=== PATIENT | female | born 1965 | race Asian ===

== ENCOUNTER 2017-10-27 13:45 | Emergency (ER) | payer OTHER ==
[~2017-10-27] VITALS: Ht 157.5 cm; Wt 51.7 kg
[~2017-10-27 13:45] MED LIST: CEPH500; CETI10 PO; CLIN300 PO; CYCL10 PO; HYDACE5; HYDACE5 PO; IBUP600 PO; IBUP800 PO; Lotrimin Ultra12 GM TP; MULVITMINF; NAPR500 PO; OXYACE5T PO; PENVK500 PO; STOMUL; TRAM50 PO; TRIA80TC TOP
[2017-10-27] MEDS ORDERED: ALBU90OI INH (14:42)
== END 2017-10-27 14:58 | disposition home or self-care (01) ==
LOC: ER 13:45
DX: Z76.0 Encounter for issue of repeat prescription (principal); Z91.040 Latex allergy status; Z88.0 Allergy status to penicillin; Z88.8 Allergy status to other drugs, medicaments and biological substances; Z88.5 Allergy status to narcotic agent; Z79.899 Other long term (current) drug therapy; F17.200 Nicotine dependence, unspecified, uncomplicated
CPT/HCPCS: 99282

== ENCOUNTER 2020-10-10 16:02 | Emergency (ER) | payer OTHER ==
[~2020-10-10] VITALS: Ht 152.4 cm; Wt 54.4 kg
[~2020-10-10 16:02] MED LIST changes: +ALBU90OI INH
[2020-10-10] MEDS ORDERED: IBUP200 PO (18:19)
== END 2020-10-10 18:38 | disposition home or self-care (01) ==
LOC: ER 16:02
DX: K08.89 Other specified disorders of teeth and supporting structures (principal); J45.909 Unspecified asthma, uncomplicated; F17.200 Nicotine dependence, unspecified, uncomplicated; Z91.040 Latex allergy status; Z88.0 Allergy status to penicillin
CPT/HCPCS: 99282; A9270

== ENCOUNTER 2022-10-04 12:41 | Emergency (ER) | payer OTHER ==
[~2022-10-04] VITALS: Ht 152.4 cm; Wt 47.2 kg
[~2022-10-04 12:41] MED LIST changes: +CEPH500 PO; +EUTHYROX125 MCG PO; +IBUP200 PO
[2022-10-04] MEDS ORDERED: ALBU90OI (12:50)
[2022-10-04] MEDS ORDERED: ALBU90OI INH (12:52)
== END 2022-10-04 13:02 | disposition home or self-care (01) ==
LOC: ER 12:41
DX: Z76.0 Encounter for issue of repeat prescription (principal); J45.909 Unspecified asthma, uncomplicated; I10 Essential (primary) hypertension; F17.200 Nicotine dependence, unspecified, uncomplicated; Z91.040 Latex allergy status; Z88.0 Allergy status to penicillin; Z88.8 Allergy status to other drugs, medicaments and biological substances; Z88.6 Allergy status to analgesic agent; Z79.899 Other long term (current) drug therapy
CPT/HCPCS: 99281

== ENCOUNTER → 2022-10-12 | Emergency (ER) | payer OTHER ==
[~2022-10-12] VITALS: Ht 152.4 cm; Wt 47.6 kg
[~2022-10-12] MED LIST changes: +ALBU90OI
== END ==
LOC: ER 15:39
DX: Z76.0 Encounter for issue of repeat prescription (principal); J45.909 Unspecified asthma, uncomplicated; F17.200 Nicotine dependence, unspecified, uncomplicated; Z88.0 Allergy status to penicillin; Z88.6 Allergy status to analgesic agent; Z88.5 Allergy status to narcotic agent; Z91.040 Latex allergy status; Z79.890 Hormone replacement therapy
CPT/HCPCS: 81000

== ENCOUNTER 2022-10-27 18:14 | Emergency (ER) | payer OTHER ==
[~2022-10-27] VITALS: Ht 157.5 cm; Wt 47.2 kg
[2022-10-27 18:36] VITALS: BP 185/80
[2022-10-27] MEDS ORDERED: TRIDERM28.4 GM TOP (20:50)
== END 2022-10-27 21:00 | disposition home or self-care (01) ==
LOC: ER 18:14
DX: L29.2 Pruritus vulvae (principal); E03.9 Hypothyroidism, unspecified; F17.210 Nicotine dependence, cigarettes, uncomplicated; Z91.040 Latex allergy status; Z88.0 Allergy status to penicillin; Z88.5 Allergy status to narcotic agent; Z79.899 Other long term (current) drug therapy
CPT/HCPCS: 99282

== ENCOUNTER 2024-01-27 12:07 | Emergency (ER) | payer OTHER ==
[~2024-01-27] VITALS: Ht 154.9 cm; Wt 47.2 kg
[~2024-01-27 12:07] MED LIST changes: +TRIDERM28.4 GM TOP
[2024-01-27 12:34] VITALS: BP 128/89
[2024-01-27] MEDS ORDERED: ALBU90OI INH (12:38)
== END 2024-01-27 12:37 | disposition home or self-care (01) ==
LOC: ER 12:07
DX: Z76.0 Encounter for issue of repeat prescription (principal); F17.290 Nicotine dependence, other tobacco product, uncomplicated; J44.9 Chronic obstructive pulmonary disease, unspecified; Z88.0 Allergy status to penicillin; Z91.040 Latex allergy status; Z88.6 Allergy status to analgesic agent; Z88.5 Allergy status to narcotic agent; Z79.890 Hormone replacement therapy; Z79.899 Other long term (current) drug therapy
CPT/HCPCS: 99281

== ENCOUNTER 2024-03-01 16:08 | Emergency (ER) | payer OTHER ==
[~2024-03-01] VITALS: Ht 154.9 cm; Wt 52.2 kg
[2024-03-01 16:21] VITALS: BP 156/111
[2024-03-01] MEDS ORDERED: ALBU90OI INH (16:26)
== END 2024-03-01 16:26 | disposition home or self-care (01) ==
LOC: ER 16:08
DX: Z76.0 Encounter for issue of repeat prescription (principal); J45.909 Unspecified asthma, uncomplicated; Z91.040 Latex allergy status; Z88.0 Allergy status to penicillin; Z88.8 Allergy status to other drugs, medicaments and biological substances; Z88.5 Allergy status to narcotic agent; Z79.899 Other long term (current) drug therapy; F17.290 Nicotine dependence, other tobacco product, uncomplicated
CPT/HCPCS: 99281

== ENCOUNTER 2024-03-14 15:41 | Emergency (ER) | payer OTHER ==
[~2024-03-14] VITALS: Ht 154.9 cm; Wt 47.2 kg
[2024-03-14 15:45] VITALS: BP 178/124
[2024-03-14 16:12] LABS: BASOPHILS ABSOLUTE AUTO 0.06 K/mm3 (0.00-0.23); BASOPHILS PERCENT AUTO 1 % (0-2); EOSINOPHILS PERCENT AUTO 2 % (0-6); Hematocrit 28.4 % (33.0-51.0); Hemoglobin 9.4 g/dL (11.5-16.0); IMMATURE GRAN ABSOLUTE AUTO 0.01 K/mm3 (0.00-0.10); IMMATURE GRAN PERCENT AUTO 0 % (0-1); LYMPHOCYTES ABSOLUTE AUTO 1.76 K/mm3 (0.84-5.20); LYMPHOCYTES PERCENT AUTO 32 % (21-46); MONOCYTES PERCENT AUTO 4 % (4-13); Mean Corpuscular HGB 34.4 pg (26.0-34.0); Mean Corpuscular HGB Conc 33.1 g/dL (31.5-36.5); Mean Corpuscular Volume 104 fL (80-100); Mean Platelet Volume 9.2 fL (9.1-12.4); NEUTROPHILS ABSOLUTE AUTO 3.42 K/mm3 (1.96-9.15); NEUTROPHILS PERCENT AUTO 62 % (41-73); Platelet Count 230 K/mm3 (150-400); RDW Coefficient Variation 14.6 % (11.7-14.2); RDW Standard Deviation 55.3 fL (35.1-46.3); Red Blood Cell Count 2.73 M/mm3 (3.80-5.20); White Blood Cell Count 5.55 K/mm3 (4.00-11.30)
[2024-03-14 16:57] LABS: Albumin, Blood 3.8 g/dL (3.4-5.0); Albumin/Globulin Ratio 1.2 (0.8-1.8); Bilirubin, Total 0.4 mg/dL (0.1-1.0); Bun/Creatinine Ratio 19.8 (12.0-20.0); Calcium, Blood 9.8 mg/dL (8.5-10.1); Creatinine, Blood 1.21 mg/dL (0.40-1.00); Globulin, Blood 3.3 g/dL (2.2-4.0); Potassium, Blood 2.7 mmol/L (3.5-5.5); Total Protein, Blood 7.1 g/dL (6.4-8.2)
== END 2024-03-14 18:55 | disposition left against medical advice (07) ==
LOC: ER 15:41
PROVIDERS: Physician Assistant
DX: R44.3 Hallucinations, unspecified (principal); Z53.21 Procedure and treatment not carried out due to patient leaving prior to being seen by health care provider
CPT/HCPCS: 80053; 84443; 85025; 99281

== ENCOUNTER → 2024-05-18 | Outpatient (CLI) | payer OTHER ==
[2024-05-18 14:20] LABS: Stool Occult Bld Immuno 1 Negative (NEGATIVE)
== END | disposition home or self-care (01) ==
LOC: LAB 13:22 → LAB SHORT 13:22
PROVIDERS: Nurse Practitioner Family
DX: D64.9 Anemia, unspecified (principal)
CPT/HCPCS: 82274